=== PATIENT | female | born 1995 | race Caucasian/White ===

== ENCOUNTER 2022-12-18 14:58 | Emergency (ER) | payer OTHER ==
[2022-12-18 15:12] VITALS: BP 117/67; PULSE 84; RESP 18; TEMP 98.3; BMI 22.6
[2022-12-18] MEDS ORDERED: DOXYCYCLINE HYCLATE 100 MG CAPSULE PO ONE ×2 (16:33→16:45)
[2022-12-18] MEDS ORDERED: LIDOCAINE HCL/PF 1% SDV 5ML VIAL ONE (16:48)
[2022-12-18 16:56] LABS: HCG,QUALITATIVE URINE Positive
[2022-12-18] MEDS ORDERED: ONDANSETRON 4 MG TABLET PO ONE (17:12)
[2022-12-18] MEDS ORDERED: ONDANSETRON *ODT* 4 MG TABLET ONE (17:27)
[2022-12-18 18:08] LABS: URINE APPEARANCE SL CLOUDY; URINE BILIRUBIN NEGATIVE (NEGATIVE); URINE COLOR YELLOW; URINE GLUCOSE (UA) NEGATIVE (NEGATIVE); URINE KETONE TRACE (NEGATIVE)
[2022-12-18 18:09] LABS: URINE LEUK ESTERASE 1+ (NEGATIVE); URINE NITRITE NEGATIVE (NEGATIVE); URINE PROTEIN NEGATIVE (NEGATIVE); URINE UROBILINOGEN 0.2 mg/dL (0.2-1.0); URINE WBC 69.1 /uL (0-25.8)
[2022-12-18 18:10] LABS: EPI CELLS 27.1 /uL (0-25.1); HYALINE CASTS 1.02 /uL (0-3.1); URINE BACTERIA 1000.4 /uL (0-1359)
== END 2022-12-18 18:40 | disposition home or self-care (01) ==
LOC: JERFT 14:58
PROC: 3E023GC Introduction of Other Therapeutic Substance into Muscle, Percutaneous Approach (ICD-10-PCS; principal; 2022-12-18)
DX: O26.891 Other specified pregnancy related conditions, first trimester (principal); R10.30 Lower abdominal pain, unspecified; O23.591 Infection of other part of genital tract in pregnancy, first trimester; N76.0 Acute vaginitis; Z3A.00 Weeks of gestation of pregnancy not specified
CPT/HCPCS: 36415; 81003; 84703; 87086; 87491; 87591; 87661; 99284-25

== ENCOUNTER 2023-05-10 19:58 | Emergency (ER) | payer OTHER ==
[2023-05-10 20:13] VITALS: BP 122/68; PULSE 85; RESP 18; TEMP 97.8; BMI 23.5
[2023-05-10 20:38] LABS: HEMATOCRIT 37.4 % (32.4-45.2); HEMOGLOBIN 12.3 G/dL (10.7-15.3); MCH 25.8 pg (25.7-33.7); MCHC 32.8 g/dl (32.0-36.0); MEAN CELL VOLUME 78.5 fl (80-96); MEAN PLT VOLUME 9.2 fl (7.5-11.1); PLATELET COUNT 166.2 10^3/uL (134-434); RBC 4.76 10^6/uL (3.60-5.2); RDW 15.8 % (11.6-15.6); WHITE BLOOD COUNT 7.8 10^3/uL (4.0-10.8)
[2023-05-10 20:43] LABS: HCG,QUALITATIVE URINE Negative
[2023-05-10 20:52] LABS: PLATELET ESTIMATE ADEQUATE
[2023-05-10 20:57] LABS: ALBUMIN 4.4 g/dl (3.4-5.0); BILIRUBIN,TOTAL 0.5 mg/dl (0.2-1); CALCIUM 9.2 mg/dl (8.5-10.1); CREATININE 0.6 mg/dl (0.6-1.3); POTASSIUM 3.5 mmol/L (3.5-5.1); TOT PROT 6.6 g/dl (6.4-8.2)
== END 2023-05-10 21:35 | disposition home or self-care (01) ==
LOC: FER 19:58
DX: R10.2 Pelvic and perineal pain (principal); N94.0 Mittelschmerz
CPT/HCPCS: 36415; 80053; 81003; 84703; 85027; 87077; 87086; 99283-25